=== PATIENT | female | born 1970 | race African-American/Black ===

== ENCOUNTER 2018-01-23 18:06 | Emergency (ER) | payer OTHER ==
[~2018-01-23] VITALS: Ht 162.6 cm; Wt 93.9 kg
[2018-01-23 18:06] VITALS: BP 118/78
[2018-01-23] MEDS ORDERED: HYDROXYZINE HCL25 M1 PO (18:37)
[2018-01-23] MEDS ORDERED: PREDNISONE 20 M20 MG PO (18:38)
== END 2018-01-23 18:41 | disposition home or self-care (01) ==
LOC: ER 18:06
DX: S30.860A Insect bite (nonvenomous) of lower back and pelvis, initial encounter (principal); S90.562A Insect bite (nonvenomous), left ankle, initial encounter; W57.XXXA Bitten or stung by nonvenomous insect and other nonvenomous arthropods, initial encounter; Y92.89 Other specified places as the place of occurrence of the external cause; Y93.89 Activity, other specified; Y99.8 Other external cause status